=== PATIENT | male | born 2000 | race African-American/Black ===

== ENCOUNTER 2023-04-17 15:34 | Emergency (ER) | payer OTHER | END 2023-04-17 17:04 | LOC: EEVIPCON 15:34 → ERS 15:34 | DX: S00.83XA Contusion of other part of head, initial encounter (principal); E11.9 Type 2 diabetes mellitus without complications; Y04.0XXA Assault by unarmed brawl or fight, initial encounter | CPT/HCPCS: 12011; 70450 ==